=== PATIENT | female | born 1950 | race Caucasian/White ===

== ENCOUNTER → 2020-05-31 09:33 | Outpatient (CLI) | payer MEDICARE, SELFPAY ==
[2020-05-31 15:29] LABS: COVID19 -Nasal RAPID Negative (Negative)
== END ==
PROVIDERS: PCP Registered Nurse; Visit Provider Surgery
DX: Z01.812 Encounter for preprocedural laboratory examination (principal); Z11.59 Encounter for screening for other viral diseases
CPT/HCPCS: 87635; C9803

== ENCOUNTER 2020-06-01 07:39 | Day surgery (SDC) | payer MEDICARE, OTHER, SELFPAY ==
[2020-06-01] VITALS (7 sets, daily range): BP systolic 114–141; BP diastolic 63–77; PULSE 75–86; RESP 11–17; TEMP 36.1–36.4; O2SAT 97–100; BMI 24.5
--- NOTE | 2020-06-01 | PATH_ITS ---
[facility] Accession Number: [id number] . 01 Material submitted: . PART A: colon - POLYP AT 45CM PART B: colon - POLYP AT 15CM PART C: rectum - BIOPSY OF RECTAL SCAR . 01 Clinical history: . SDC . 02 Diagnosis: A. Cecal Polyp at 45 cm, Biopsy: Tubular adenoma. . B. Colon Polyp at 15 cm, Biopsy: Hyperplastic polyp. . C. Rectal Scar, Biopsy: Colonic mucosa with crypt architectural distortion, suggestive of remote full-thickness mucosal injury; please see comment. Negative for active inflammation, granulomata, dysplasia or malignancy. MRV 06/03/2020 1148 Local . 02 Comment: C) The histologic findings are nonspecific as to etiology, but raise the possibility of a prior polypectomy site or other healed ulcer. There is no evidence of neoplasm. . 02 Electronically signed: . David Nicole MD, PhD, Pathologist NPI- [id number] . 01 Gross description: . Part A: POLYP AT 45CM: Received in formalin is 1 fragment(s) of goss, soft tissue measuring 0.3 x 0.3 x 0.2 cm submitted entirely in 1 cassette(s) Part B: POLYP AT 15CM: Received in formalin is 1 fragment(s) of goss, soft tissue measuring 0.2 x 0.2 x 0.2 cm submitted entirely in 1 cassette(s) Part C: BIOPSY OF RECTAL SCAR: Received in formalin are 3 fragment(s) of goss, soft tissue measuring 0.2 x 0.2 x 0.2 cm to 0.1 x 0.1 x 0.1 cm submitted entirely in 1 cassette(s) /QBJ 06/02/2020 0642 Local . 02 Pathologist provided ICD-10: D12.6, K63.5, K62.89 . 02 CPT . 668589, 643681, 664886 Performed at: 01 [facility] [address] [id number] MD Sergio Payne MD Phone: [phone] Performed at: 02 [place] [id number] [place] [id number] MD Carmen Peter MD Phone: [phone]
[2020-06-01] MEDS: LACTATED RINGERS 1,000 ML 42 ML IV (08:28)
--- NOTE | 2020-06-01 08:34 | PM.HP.1 ---
History of Present Illness History of Present Illness Date Patient Seen: 06/01/20 Time Patient Seen: 08:34 Chief complaint: [facility] Narrative: This is a 69-year-old woman with history of advanced colon polyps. Her last colonoscopy was in July 2016. She was apparently not able to tolerate conscious sedation, and her prior colonoscopies had to be done under propofol. She had a large 2.5 cm rectal polyp that contained tubulovillous adenoma with high-grade dysplasia. Since her last colonoscopy she has had occasional leakage. She reports that this mainly happens if she takes a long walk, or if she does not have time to have her normal bowel movements in the morning. She reports she has about 3 bowel movements in the morning which are formed. If she does not have all 3 prior to beginning her days activities, she tends to have some leakage if she is not near bathroom. She reports that she spends less than 2 minutes on the toilet having a bowel movement. She denies any blood in the stool or any tarry or dark looking stool. She apparently had difficulty with the bowel prep yesterday and vomited much of the prep. She reports the output is clear on her last trip to the bathroom. ROS: Reports itching, denies fatigue, night sweats, unexplained weight loss, unexplained abdominal pain. Thirteen system review is otherwise negative other than as mentioned below and in HPI. PE: GENERAL: Well groomed and cooperative. Appears stated age. Answers questions promptly and appropriately. Vital signs noted. HENT: Normocephalic, atraumatic. Hearing intact. EYES: Conjunctiva pink, sclera white, no periorbital swelling. CARDIOVASCULAR: Regular rate. No pedal edema. RESPIRATORY: Non-tachypneic, breathing comfortably on room air. GASTROINTESTINAL: Abdomen soft and non-distended GENITALURINARY: No flank tenderness. MUSCULOSKELETAL: Equal tone and mass bilaterally. SKIN: Warm, dry, soft, appropriate color for ethnicity. No other lesions, rashes, or wounds. NEURO: Alert and Oriented X 3. No gross sensory deficits, or cognitive issues. PSYCH: Appropriate affect and mood. Patient History Medical History Diverticulitis Kidney stones Family & Social History Family History Father Heart disease Grandmother Ovarian cancer Family/Other Breast cancer Social History: household members spouse Tobacco & Substance use: Smoking Status Never smoker alcohol intake current alcohol intake frequency holiday/special occasion Substance Use Type does not use Meds Home Medications and Allergies Home Medications Medication Instructions Recorded Confirmed Type hydrochlorothiazide 12.5 mg capsule 12.5 mg PO DAILY 04/28/20 06/01/20 History levothyroxine 50 mcg capsule 50 mcg PO DAILY 04/28/20 06/01/20 History Allergies Allergy/AdvReac Type Severity Reaction Status Date / Time No Known Drug Allergies Allergy Verified 06/01/20 08:08 Exam Vital Signs (past 8 hours): - 06/01/20 08:15 Temperature 97.5 F L Pulse Rate 75 Respiratory Rate 16 Blood Pressure 136/77 Pulse Oximetry 98 Oxygen Delivery Method Room Air Assessment & Plan Assessment & Plan narrative: This is a 69-year-old woman with a significant history of advanced colon polyps including a large rectal polyp with tubular villous adenoma and high-grade dysplasia in 2014. Her last colonoscopy was in 2016, and she was found to have polyps at that time as well. She was recommended to have a colonoscopy every 3 years, and she is due for her follow-up colonoscopy. We discussed the risks and benefits of colonoscopy and polypectomy or biopsy, and she would like to do that. Due to her past history, we will not try to do this with fentanyl and Versed administered by me. She will require the anesthesiologist due to her past intolerance of sedation, and request their assistance with her procedure. Risks and benefits of surveillance colonoscopy and possible polypectomy were discussed with the patient including risk of bleeding, perforation, need for additional procedures, risks of anesthesia. The patient desires to proceed with the colonoscopy procedure under mac sedation with an anesthesiologist present. Plan: Proceed with colonoscopy COVID-19 COVID-19 status: Negative Result date/Date tested (Pos, Neg/Pending): 05/31/20 Time Spent With Patient Time with patient: 15-24 minutes Quality VTE Deep Vein Thrombosis/Pulmonary Embolism Present on Admission: No
--- NOTE | 2020-06-01 08:43 | PM.OP.ENDO ---
Operative Date/Time/Diagnoses Date of procedure: 06/01/20 Time of procedure: 08:43 Pre-op diagnosis: Personal history of advanced rectal polyps, diverticulosis, diverticulitis Post-op diagnosis: other (Two small polyps, benign appearing rectal scar; extensive diverticulosis) Procedure & Clinicians Study performed: Colonoscopy Polypectomy with cold forceps x2 Biopsy of rectal scar at prior polypectomy site Indications: Patient with personal history of advanced colon polyps and intolerance of conscious sedation with fentanyl and versed. She is here for surveillance colonoscopy and will require MAC with propofol by the anesthesiologist in order to complete her procedure safely. Surgeon: Mariya Bai Procedure Notes SCOAP/Timeout: Performed Procedure in detail: The patient was brought to the room and placed in left lateral decubitus position with all bony prominences padded. A time-out was performed and then the patient was given deep sedation by Dr. Orta, of anesthesia. Once adequately sedated, the procedure was begun. A rectal exam was performed revealing a small palpable scar just inside the anal verge, and normal rectal tone. The colonoscope was then introduced to the rectum and advanced to the cecum in the usual fashion. The left colon was very tortuous, with thickened colon wall and many diverticula. The prep was poor. The cecum was identified by the appendiceal orifice, the mucosal tri-fold, and the ileocecal valve. The scope was then retracted while rotating side to side and examining each mucosal fold. The colon was washed with water as we went in order to get a better look at the colon wall. Two 5 mm polyps were found and removed with Jumbo forceps. One was at 45 cm, and the other was at 15 cm. They were completely removed and sent for pathology] At the conclusion of the procedure retroflexion was performed andsmall grade 1-2 internal hemorrhoids without stigmata of bleeding were seen]. The scar from the patient's prior rectal surgery was seen. There was no appearance of recurrence or mucosal abnormality other than the appearance of a benign scar. Biopsies were taken of the scarred area. The scope was then straightened and withdrawn from the rectum the procedure was concluded. The patient tolerated the procedure well and was transferred to the PACU in stable condition. Scope withdrawal time: 10 Findings: diverticulosis, polyp and other findings (Rectal scar) Specimen(s): other (Polypectomy x2, biopsy of rectal scar) Complications: none Impression: Two small polyps, extensive diverticulosis, and benign-appearing rectal scar Post-procedure Recommendations: Colonscopy in 3 years (Due to history of advanced polyps) and Other recommendation (Daily fiber such as Metamucil) Follow up: as needed Disposition: PACU
== END 2020-06-01 10:05 | disposition home or self-care (01) ==
PROVIDERS: PCP Registered Nurse; Referring Provider Registered Nurse; Visit Provider Surgery
PROC: 0DJD8ZZ Inspection of Lower Intestinal Tract, Via Natural or Artificial Opening Endoscopic (ICD-10-PCS; CPT 45378; principal; 2020-06-01 08:45)
DX: Z12.11 Encounter for screening for malignant neoplasm of colon (principal); Z86.010 Personal history of colon polyps; K57.30 Diverticulosis of large intestine without perforation or abscess without bleeding; D12.6 Benign neoplasm of colon, unspecified; K62.89 Other specified diseases of anus and rectum
CPT/HCPCS: 45380; J2704

== ENCOUNTER → 2021-07-08 14:57 | Outpatient (CLI) | payer MEDICARE, OTHER, SELFPAY ==
--- NOTE | 2021-07-08 | DI.MG.S_ITS ---
BILATERAL DIGITAL SCREENING MAMMOGRAM 3D/2D WITH CAD: 07/08/2021 CLINICAL: Routine screening. Family history of breast cancer. Comparison is made to exams dated: 09/07/2010 mammogram and 06/30/2008 mammogram - [facility]. There are scattered fibroglandular elements in both breasts. Current study was also evaluated with a Computer Aided Detection (CAD) system. There is a new focal asymmetry in the right breast at 6 o'clock middle depth. No other significant masses, calcifications, or other findings are seen in either breast. IMPRESSION: INCOMPLETE: NEEDS ADDITIONAL IMAGING EVALUATION The new focal asymmetry in the right breast is indeterminate. Additional views with possible ultrasound are recommended. This exam was interpreted at Station ID: [id number]. NOTE: For mammograms, a report in lay terms will be sent to the patient. Approximately 15% of breast malignancies will not be visualized mammographically. In the management of a palpable breast mass, a negative mammogram must not discourage biopsy of a clinically suspicious lesion. Electronically Signed By: Michelet martini/jayesh:07/10/2021 08:42:23 letter sent: Additional Imaging Needed ACR BI-RADS Category 0: Incomplete [id number]
== END ==
PROVIDERS: PCP Registered Nurse; Referring Provider Registered Nurse; Visit Provider Registered Nurse
DX: Z12.31 Encounter for screening mammogram for malignant neoplasm of breast (principal); Z80.3 Family history of malignant neoplasm of breast
CPT/HCPCS: 77063; 77067

== ENCOUNTER → 2021-08-02 13:41 | Outpatient (CLI) | payer MEDICARE, OTHER, SELFPAY ==
--- NOTE | 2021-08-02 | DI.MG.S_ITS ---
UNILATERAL RIGHT DIGITAL DIAGNOSTIC MAMMOGRAM 3D/2D WITH ADDITIONAL VIEWS: 08/02/2021 CLINICAL: Additional evaluation requested from prior study. Comparison is made to exams dated: 07/08/2021 mammogram - [facility], 09/07/2010 mammogram, and 06/30/2008 mammogram - [facility]. There are scattered fibroglandular elements in right breast. There is a 0.8 cm oval mass with a circumscribed margin in the right breast at 6 o'clock middle depth 7 cm from the nipple. This is seen in additional views. No other significant masses or calcifications are seen in the breast. IMPRESSION: INCOMPLETE: NEEDS ADDITIONAL IMAGING EVALUATION The 0.8 cm oval mass in the right breast is indeterminate. Additional views with possible ultrasound are recommended. This exam was interpreted at Station ID: [id number]. NOTE: For mammograms, a report in lay terms will be sent to the patient. Approximately 15% of breast malignancies will not be visualized mammographically. In the management of a palpable breast mass, a negative mammogram must not discourage biopsy of a clinically suspicious lesion. Electronically Signed By: Celso Javed acr/:08/02/2021 14:27:17 ACR BI-RADS Category 0: Incomplete [id number]
--- NOTE | 2021-08-02 | DI.US.S_ITS ---
ULTRASOUND OF RIGHT BREAST: 08/02/2021 CLINICAL: Patient returns today to evaluate a focal asymmetry in the right breast. Comparison is made to exams dated: 08/02/2021 mammogram, 07/08/2021 mammogram - [facility], 09/07/2010 mammogram, 06/30/2008 mammogram, 12/12/2006 mammogram, and 12/06/2005 mammogram - [facility]. Color flow and Doppler ultrasound of the right breast were performed. Bustamante scale images of the real-time examination were reviewed. There is a 0.4 cm x 0.9 cm x 0.3 cm cyst in the right breast at 7 o'clock posterior depth 4 cm from the nipple. This cyst displays posterior acoustic enhancement. There are calcifications not seen mammographically. There also is a 1 cm x 0.7 cm x 0.7 cm cyst in the right breast at 7 o'clock posterior depth 8 cm from the nipple. IMPRESSION: PROBABLY BENIGN The 0.4 cm x 0.9 cm x 0.3 cm cyst in the right breast at 7 o'clock posterior depth is consistent with complex cysts and is probably benign. A follow-up ultrasound in 6 months is recommended. The 1 cm x 0.7 cm x 0.7 cm cyst in the right breast at 7 o'clock posterior depth is consistent with a complex cyst and is probably benign. A follow-up ultrasound in 6 months is recommended to demonstrate stability. This exam was interpreted at Station ID: [id number]. Electronically Signed By: Celso Javed acr/:08/02/2021 16:23:18 letter sent: Followup Recommended Ultrasound BI-RADS: 3 Probably benign
== END ==
PROVIDERS: PCP Registered Nurse; Referring Provider Registered Nurse; Visit Provider Registered Nurse
DX: R92.8 Other abnormal and inconclusive findings on diagnostic imaging of breast (principal); N60.01 Solitary cyst of right breast
CPT/HCPCS: 76642; 77065; G0279

== ENCOUNTER → 2022-04-26 13:53 | Outpatient (CLI) | payer MEDICARE, OTHER, SELFPAY ==
--- NOTE | 2022-04-26 | DI.US.S_ITS ---
LIMITED ULTRASOUND OF RIGHT BREAST: 04/26/2022 CLINICAL: 6 month follow-up of cysts. Comparison is made to exams dated: 08/02/2021 ultrasound, 08/02/2021 mammogram, and 07/08/2021 mammogram - [facility]. Color flow ultrasound of the right breast 7 o'clock region was performed. Bustamante scale images of the real-time examination were reviewed. There is a 1 cm x 0.5 cm x 0.4 cm cyst in the right breast at 7 o'clock posterior depth 4 cm from the nipple. This cyst displays posterior acoustic enhancement. This abnormality is not significantly changed. There also is a 1 cm x 0.9 cm x 0.7 cm cyst with a septated internal wall in the right breast at 7 o'clock posterior depth 8 cm from the nipple. This cyst is anechoic. This abnormality is not significantly changed. IMPRESSION: PROBABLY BENIGN The 1 cm x 0.5 cm x 0.4 cm cyst in the right breast at 7 o'clock posterior depth is consistent with a complicated cyst and is probably benign. The 1 cm x 0.9 cm x 0.7 cm cyst in the right breast at 7 o'clock posterior depth is consistent with a complicated cyst and is probably benign. A follow-up mammogram and an ultrasound in 6 months is recommended to demonstrate stability. This exam was interpreted at Station ID: [id number]. Electronically Signed By: Michelet martini/jayesh:04/26/2022 20:44:40 letter sent: Followup Recommended Ultrasound BI-RADS: 3 Probably benign
== END ==
PROVIDERS: PCP Registered Nurse; Referring Provider Registered Nurse; Visit Provider Registered Nurse
DX: R92.8 Other abnormal and inconclusive findings on diagnostic imaging of breast; N60.01 Solitary cyst of right breast
CPT/HCPCS: 76642

== ENCOUNTER 2022-07-03 22:02 | Emergency (ER) | payer MEDICARE, OTHER, SELFPAY ==
[2022-07-03 22:55] VITALS: BP 134/116; PULSE 89; RESP 24; TEMP 36.7; O2SAT 96; BMI 25.0
[2022-07-03 23:02] VITALS: PULSE 78; RESP 18; O2SAT 96
[2022-07-03] MEDS: ONDANSETRON 4 MG/2 ML INJ IV (23:06)
[2022-07-03 23:13] LABS: Add Manual Diff / Slide Review NO; Basophils Absolute Auto 100 /uL (0-100); Basophils Percent Auto 0.7 % (0-2); Eosinophils Absolute Auto 0 /uL (0-450); Eosinophils Percent Auto 0.1 % (2-4); Hematocrit 40.7 % (36-46); Hemoglobin 13.5 g/dL (12.0-16.0); Lymphocytes Absolute Auto 1500 /uL (1100-4500); Lymphocytes Percent Auto 9.1 % (25-40); Mean Corpuscular HGB Conc 33.3 % (30-36); Mean Corpuscular Hemoglobin 29.2 PG (26-34); Mean Corpuscular Volume 87.9 fL (80-100); Monocytes Absolute Auto 1100 /uL (0-900); Monocytes Percent Auto 6.4 % (3-14); Neutrophils Absolute Auto 14100 /uL (1500-7000); Neutrophils Percent Auto 83.7 % (50-75); Platelet Count 266 X10^3/uL (150-400); Red Blood Cell Count 4.63 X10^6/uL (4.0-5.2); Red Cell Distribution Width 13.2 % (11.6-14.8); White Blood Cell Count 16.8 X10^3/uL (4.5-11.0)
[2022-07-03 23:19] LABS: Alanine Aminotransferase 23 IU/L (<35); Albumin 4.3 g/dL (3.5-5.0); Albumin Globulin Ratio 1.1 (1.0-2.8); Alkaline Phosphatase 111 U/L (38-126); Aspartate Aminotransferase 28 IU/L (14-36); Bilirubin Total 0.8 mg/dL (0.2-1.3); Blood Urea Nitrogen 18 mg/dL (7-17); Calcium 8.7 mg/dL (8.4-10.2); Carbon Dioxide 27 mmol/L (22-32); Chloride 98 mmol/L (98-107); Estimated Glomerular Filt Rate > 60 mL/min (>60); Glucose 181 mg/dL (80-110); HEMOLYSIS 43 (0-50); Lipase 52 U/L (23-300); Potassium 3.4 mmol/L (3.4-5.1); Sodium 136 mmol/L (137-145); Total Protein 8.3 g/dL (6.3-8.2)
[2022-07-03 23:30] VITALS: PULSE 73; O2SAT 95
--- NOTE | 2022-07-03 23:49 | ED.NAVMDI ---
HPI - Nausea/Vomiting/Diarrhea General Chief complaint: Nausea/Vomiting/Diarrhea Stated complaint: vomiting Time Seen by Provider: 07/03/22 23:31 Source: patient and family () Mode of arrival: Ambulatory Limitations: no limitations History of Present Illness HPI Narrative: Patient is a 71-year-old female who is here for evaluation of vomiting and nausea and symptoms that are consistent with a kidney stone. She is had multiple kidney stones in the past and she states this feels like 1 of her prior stones. Does on the right side. Symptoms potentially started last evening but got significantly worse today. Started vomiting. She did have hydrocodone and Flomax at home from a prior stone and she took these medications but subsequently threw them up. She denies any fevers. She did have some blood in her urine and an episode where she tried to urinate but only a small amount came out. Related Data Home Medications Medication Instructions Recorded Confirmed hydrochlorothiazide 12.5 mg capsule 12.5 mg PO DAILY 04/28/20 06/01/20 levothyroxine 50 mcg capsule 50 mcg PO DAILY 04/28/20 06/01/20 Previous Rx's Medication Instructions Recorded hydrocodone 5 mg-acetaminophen 325 1 tab PO Q4-6H PRN pain #10 tabs 07/04/22 mg tablet ondansetron 4 mg disintegrating 4 mg PO Q6H PRN nausea and 07/04/22 tablet vomiting #10 tabs tamsulosin 0.4 mg capsule (Flomax) 0.4 mg PO DAILY #14 caps 07/04/22 Allergies Allergy/AdvReac Type Severity Reaction Status Date / Time No Known Drug Allergies Allergy Verified 06/01/20 08:08 Review of Systems Constitutional Constitutional: Reports system reviewed and no additional complaints, except as documented Gastrointestinal Gastrointestinal: Reports system reviewed and no additional complaints, except as documented Genitourinary Genitourinary: Reports system reviewed and no additional complaints, except as documented Musculoskeletal Musculoskeletal: Reports system reviewed and no additional complaints, except as documented Integumentary/Breasts Skin/Breast: Reports system reviewed and no additional complaints, except as documented Hematologic/Lymphatic On Anticoagulants: No Patient History Medical History Diverticulitis Kidney stones Family History Father Heart disease Grandmother Ovarian cancer Family/Other Breast cancer Social History marital status: household members: spouse occupational status: employed Smoking Status: Never smoker alcohol intake: current substance use type: does not use Smoking Status: Never smoker alcohol intake frequency: holidays/special occasions only Substance Use Type: does not use Exam Initial Vital Signs Initial Vital Signs: Vital Signs Temperature 98.1 F 07/03/22 22:55 Pulse Rate 89 07/03/22 22:55 Respiratory Rate 24 07/03/22 22:55 Blood Pressure 134/116 H 07/03/22 22:55 Pulse Oximetry 96 07/03/22 22:55 Oxygen Delivery Method 07/03/22 22:55 Const General: cooperative, comfortable and No ill appearing HENMT Head: normal to inspection and normocephalic Resp Effort & Inspection: normal respiratory effort Cardio Rate: regular rate GI Inspection: normal to inspection and non-distended Skin General: no rashes or lesions noted Neuro General: patient alert, patient awake and moves all extremities Extrem General: capillary refill normal Course Orders Ordered: ED Orders 07/03/22 23:00 Complete Blood Count AUTO DIFF Stat Comprehensive Metabolic Panel Stat Lipase Stat 07/03/22 23:54 Urine Culture Stat Urine Microscopic Stat Ondansetron HCl (Ondansetron 4 Mg/2 Ml Inj) 4 mg IV NOW PRN PRN Reason: Nausea And Vomiting Last Admin: 07/03/22 23:06 Dose: 4 mg Documented By: MARIA Discontinued Medications Hydrocodone Bitart/Acetaminophen (Hydrocodone/Acet 5/325 Prepack) 1 bottle MISC SEEINSTR ONE Stop: 07/04/22 01:32 Hydromorphone HCl (Hydromorphone 0.5 Mg Inj) 0.5 mg IV NOW ONE Stop: 07/04/22 00:31 Last Admin: 07/04/22 00:45 Dose: 0.5 mg Documented By: MARIA Ketorolac Tromethamine (Ketorolac 30 Mg/Ml Vial) 30 mg IV NOW ONE Stop: 07/03/22 23:51 Last Admin: 07/04/22 00:10 Dose: 30 mg Documented By: HALLIE Ondansetron HCl (Ondansetron 4 Mg/2 Ml Inj) 4 mg IV NOW ONE Stop: 07/03/22 23:51 Last Admin: 07/04/22 00:10 Dose: 4 mg Documented By: HALLIE Ondansetron HCl (Ondansetron 4 Mg Odt Prepack) 1 bottle MISC SEEINSTR ONE Stop: 07/04/22 01:32 Vital Signs Vital signs: Vital Signs - 8 hr 07/03/22 22:55 07/03/22 23:02 07/03/22 23:30 Temperature 98.1 F Pulse Rate 89 78 73 Respiratory Rate 24 18 Blood Pressure 134/116 H Pulse Oximetry 96 96 95 Oxygen Delivery Method Room Air 07/04/22 00:00 07/04/22 00:30 Temperature Pulse Rate 77 82 Respiratory Rate Blood Pressure Pulse Oximetry 95 93 Oxygen Delivery Method MDM - Nausea/Vomiting/Diarrhea Medical Records Attestation: I reviewed the patient's medical records. Lab Data Attestation: I reviewed the patient's lab results. Result diagrams: 07/03/22 23:00 07/03/22 23:00 Labs: Lab Results 07/03/22 07/03/22 07/03/22 Range/Units 23:00 23:00 23:54 WBC 16.8 H (4.5-11.0) X10^3/uL RBC 4.63 (4.0-5.2) X10^6/uL Hgb 13.5 (12.0-16.0) g/dL Hct 40.7 (36-46) % MCV 87.9 (80-100) fL MCH 29.2 (26-34) PG MCHC 33.3 (30-36) % RDW 13.2 (11.6-14.8) % Plt Count 266 (150-400) X10^3/uL Neut % (Auto) 83.7 H (50-75) % Lymph % (Auto) 9.1 L (25-40) % Charles % (Auto) 6.4 (3-14) % Eos % (Auto) 0.1 L (2-4) % Baso % (Auto) 0.7 (0-2) % Neut # (Auto) 29085 H (2853-9342) /uL Lymph # (Auto) 1500 (7810-4346) /uL Charles # (Auto) 1100 H (0-900) /uL Eos # (Auto) 0 (0-450) /uL Baso # (Auto) 100 (0-100) /uL Sodium 136 L (137-145) mmol/L Potassium 3.4 (3.4-5.1) mmol/L Chloride 98 (98-107) mmol/L Carbon Dioxide 27 (22-32) mmol/L BUN 18 H (7-17) mg/dL Creatinine 0.62 (0.52-1.04) mg/dL Estimated GFR > 60 (>60) mL/min BUN/Creatinine Ratio 29.0 H (6-22) Glucose 181 H (80-110) mg/dL Calcium 8.7 (8.4-10.2) mg/dL Total Bilirubin 0.8 (0.2-1.3) mg/dL AST 28 (14-36) IU/L ALT 23 (<35) IU/L Alkaline Phosphatase 111 (38-126) U/L Total Protein 8.3 H (6.3-8.2) g/dL Albumin 4.3 (3.5-5.0) g/dL Globulin 4.0 (1.7-4.1) g/dL Albumin/Globulin Ratio 1.1 (1.0-2.8) Lipase 52 (23-300) U/L Urine RBC 10-30/hpf H (0-5/HPF) Urine WBC None seen (0-5/HPF) Ur Squamous Epith Cells 0-1 /hpf (0-5/HPF) Urine Bacteria Occasional (0-1) (None) Ur Culture Indicated? Specimen cultured Micro UA Comment * Urine Dip Bedside Urine Glucose 100 mg/dl Bedside Urine Bilirubin - Negative Bedside Urine Ketone +/- 5 Urine Specific [place] 1.010 Bedside Urine Occult Blood +++ Bedside Urine pH 7.0 Bedside Urine Protein - Negative Bedside Urine Urobilinogen - Negative Bedside Urine Nitrite - Negative Bedside Urine Leukocytes - Negative Esterase MDM Narrative Medical decision making narrative: Patient reports improvement in symptoms after the above-stated therapies. Her urine shows no sign of infection. Her kidney function is unremarkable. She is passed all of her prior stones before and has not required any specific intervention. Review of her medicines that she took at home stated that they were from 2019. Had a discussion with her regarding her symptoms. We did discuss ordering a CT scan to confirm that this was a stone and also to evaluate for size and location. We also discussed the risks of this. We also discussed the benefits of not doing the CT scan in the risks as well. After this discussion we opted not to do a CT scan. She states that in the past they have just done an x-ray because she wanted to avoid the radiation. Will send home with a prescription for pain medication and nausea medicine. Will also refill her Flomax. She was given strict return precautions. Her is at bedside for this discussion. They both expressed understanding and agreement. Discharge Plan Departure Patient Disposition: Home Clinical Impression: Renal colic Instructions: DI for Kidney Stones Activity Restrictions/Additional Instructions: I recommend that you take the medications as directed. Be sure to stay hydrated. Return to the emergency department for fevers, vomiting despite the medicine, pain that is not somewhat controlled with the medication or inability to urinate like we discussed. Prescriptions: New hydrocodone-acetaminophen 5-325 mg tablet 1 tab PO Q4-6H PRN (Reason: pain) Qty: 10 0RF tamsulosin [Flomax] 0.4 mg capsule 0.4 mg PO DAILY Qty: 14 0RF ondansetron 4 mg tablet,disintegrating 4 mg PO Q6H PRN (Reason: nausea and vomiting) Qty: 10 0RF No Action levothyroxine 50 mcg capsule 50 mcg PO DAILY hydrochlorothiazide 12.5 mg capsule 12.5 mg PO DAILY Referrals: Nhan Keane ARNP [Primary Care Provider] - Mode Ureña MD [Physician] - Stand Alone Forms: Patient Portal/API
[2022-07-04] VITALS: PULSE 77; O2SAT 95
[2022-07-04] MEDS: KETOROLAC 30 MG/ML VIAL IV (00:10)
[2022-07-04] MEDS: ONDANSETRON 4 MG/2 ML INJ IV (00:10)
[2022-07-04 00:14] LABS: Bacteria Urine Occasional (0-1); Culture Indicated Urine Specimen Cultured; RBC Urine 10-30/HPF (0-5/HPF); Squamous Epithelial Cell Urine 0-1 /HPF (0-5/HPF); WBC Urine None Seen (0-5/HPF)
[2022-07-04 00:30] VITALS: PULSE 82; O2SAT 93
[2022-07-04] MEDS: HYDROMORPHONE 0.5 MG INJ IV (00:45)
[2022-07-04] MEDS: ONDANSETRON 4 MG ODT PREPACK 1 BOTTLE MISC (02:06)
[2022-07-04] MEDS: HYDROCODONE/ACET 5/325 PREPACK 1 BOTTLE MISC (02:06)
== END 2022-07-04 02:16 | disposition home or self-care (01) ==
PROVIDERS: Emergency Provider Emergency Medicine; PCP Registered Nurse
DX: N23 Unspecified renal colic (principal); Z87.442 Personal history of urinary calculi
CPT/HCPCS: 36415; 80053; 81003; 81015; 83690; 85025; 87086; 96374; 96375; 96376; 99284; J1170; J1885; J2405

== ENCOUNTER → 2022-12-05 13:21 | Outpatient (CLI) | payer MEDICARE, OTHER, SELFPAY ==
--- NOTE | 2022-12-05 | DI.US.S_ITS ---
ULTRASOUND OF RIGHT BREAST: 12/05/2022 CLINICAL: Patient returns today to evaluate two focal asymmetries in the right breast. No prior exams were available for comparison. Color flow and real-time ultrasound of the right breast were performed. Bustamante scale images of the real-time examination were reviewed. There is a 0.7 cm x 0.3 cm x 0.5 cm cyst in the right breast at 7 o'clock posterior depth 4 cm from the nipple. This cyst displays posterior acoustic enhancement. This abnormality is slightly less prominent. There also is a benign 0.5 cm x 0.3 cm x 0.5 cm cyst with a septated internal wall in the right breast at 7 o'clock posterior depth 8 cm from the nipple. This cyst is anechoic. This abnormality is decreased in size. Additionally, there is a benign dilated duct in the right breast at 9 o'clock posterior depth. This dilated duct displays internal echoes. This correlates as an incidental finding. IMPRESSION: PROBABLY BENIGN The 0.7 cm x 0.3 cm x 0.5 cm cyst in the right breast at 7 o'clock posterior depth is consistent with a complicated cyst and is probably benign. This is the one 4cm from the nipple. A follow-up ultrasound in 6 months is recommended. The 0.5 cm x 0.3 cm x 0.5 cm cyst in the right breast at 7 o'clock posterior depth is consistent with a complicated cyst and is benign, decreased from prior imaging, corresponding to the mammographic mass that is decreased. The dilated duct in the right breast at 9 o'clock posterior depth is benign. This exam was interpreted at Station ID: [id number]. Electronically Signed By: Kevon Miller M.D. lc/:12/05/2022 15:22:54 letter sent: Followup Recommended Ultrasound BI-RADS: 3 Probably benign
--- NOTE | 2022-12-05 | DI.MG.S_ITS ---
BILATERAL DIGITAL DIAGNOSTIC MAMMOGRAM 3D/2D SHORT-TERM FOLLOW-UP: 12/05/2022 CLINICAL: Short term follow up of the right breast, due for bilateral imaging. Comparison is made to exams dated: 08/02/2021 mammogram, 07/08/2021 mammogram - [facility] [place], and 09/07/2010 mammogram - [facility]. There are scattered areas of fibroglandular density in both breasts (category b / 25%-50% glandular tissue). There is an oval mass with a circumscribed margin in the right breast at 6 o'clock middle depth. This is seen in additional views. This is less prominent. No other significant masses, calcifications, or other findings are seen in either breast. IMPRESSION: INCOMPLETE: NEEDS ADDITIONAL IMAGING EVALUATION The oval mass in the right breast is indeterminate, decreased in size. An ultrasound is recommended to reassess to previous sonographic findings. Based on the Tyrer Cuzick model (a risk assessment model) the patient's lifetime risk is 5.5% and her 10 year risk is 5.0%. According to the ACR, ACS, and NCCN guidelines, an annual breast MRI exam along with mammogram is recommended if the patient's lifetime risk is 20% or greater. This exam was interpreted at Station ID: [id number]. NOTE: For mammograms, a report in lay terms will be sent to the patient. Approximately 15% of breast malignancies will not be visualized mammographically. In the management of a palpable breast mass, a negative mammogram must not discourage biopsy of a clinically suspicious lesion. Electronically Signed By: Kevon Miller M.D. lc/:12/05/2022 15:18:23 ACR BI-RADS Category 0: Incomplete 3340F
== END ==
PROVIDERS: PCP Registered Nurse; Referring Provider Registered Nurse; Visit Provider Registered Nurse
DX: R92.8 Other abnormal and inconclusive findings on diagnostic imaging of breast (principal); N60.01 Solitary cyst of right breast; N60.41 Mammary duct ectasia of right breast
CPT/HCPCS: 76642; 77066; G0279

== ENCOUNTER → 2023-07-02 12:22 | Outpatient (CLI) | payer MEDICARE, OTHER, SELFPAY ==
--- NOTE | 2023-07-02 12:25 | DI.US.S_ITS ---
ULTRASOUND OF RIGHT BREAST: 07/02/2023 CLINICAL: Patient returns today to evaluate two focal asymmetries in the right breast. Comparison is made to exams dated: 12/05/2022 ultrasound, 12/05/2022 mammogram, 08/02/2021 ultrasound, 04/26/2022 ultrasound, 08/02/2021 mammogram, and 07/08/2021 mammogram - [facility]. Color flow and real-time ultrasound of the right breast were performed. Bustamante scale images of the real-time examination were reviewed. There is a benign 0.4 cm x 0.5 cm x 0.4 cm cyst in the right breast at 7 o'clock posterior depth 4 cm from the nipple. This cyst is hypoechoic with posterior acoustic enhancement. This abnormality is less prominent. Color flow imaging demonstrates that there is no vascularity present. There also is a benign 0.4 cm x 0.2 cm x 0.3 cm cyst with a septated internal wall in the right breast at 7 o'clock posterior depth 8 cm from the nipple. This cyst is anechoic with internal echoes. This abnormality is decreased in size. IMPRESSION: BENIGN There is no sonographic evidence of malignancy. The 0.4 cm x 0.5 cm x 0.4 cm complicated cyst in the right breast at 7 o'clock posterior depth has demonstrated two years of stability and is consistent with a benign process. The 0.4 cm x 0.2 cm x 0.3 cm complicated cyst in the right breast at 7 o'clock posterior depth has demonstrated two years of stability and is consistent with a benign process. Return to annual mammogram screening schedule is recommended. Findings and recommendations were conveyed to the patient during today's evaluation. This exam was interpreted at Station ID: [id number]. Electronically Signed By: Scott krishnamurthy/:07/04/2023 13:48:39 Entry: - 07/04/2023 13:48:39 letter sent: Normal Exam Ultrasound BI-RADS: 2 Benign
== END ==
PROVIDERS: PCP Registered Nurse; Referring Provider Registered Nurse; Visit Provider Registered Nurse
DX: D48.60 Neoplasm of uncertain behavior of unspecified breast (principal); N60.01 Solitary cyst of right breast
CPT/HCPCS: 76642